=== PATIENT | male | born 1945 | race Caucasian/White ===

== ENCOUNTER 2023-02-10 21:48 | Inpatient (IN) | payer MEDICARE, OTHER ==
[~2023-02-10] VITALS: Ht 167.6 cm; Wt 63.5 kg
[~2023-02-10 21:48] MED LIST: IPRATROPIUM/ALBUTEROL SULFATE 3 ML AMPUL.NEB (DUONEB) ONE
[2023-02-10 21:49] VITALS: BP_SYST 127; PULSE 118; RESP 25; TEMP 97.8; O2SAT 83
[2023-02-10] MEDS ORDERED: cefTRIAXone 1 GM IVPB PREMIX 50 ML IV ONE (22:00)
[2023-02-10] MEDS ORDERED: MAGNESIUM SULFATE 50 ML IV ONE (22:00)
[2023-02-10] MEDS ORDERED: methylPREDNISolone SOD SUCC/PF 62.5 MG/ML VIAL IVP ONE (22:00)
[2023-02-10] MEDS ORDERED: IPRATROPIUM/ALBUTEROL SULFATE 3 ML AMPUL.NEB (DUONEB) INH ONE (22:00)
[2023-02-10] MEDS ORDERED: AZITHROMYCIN 500 MG in NS 250 ML IV ONE (22:00)
[2023-02-10] MEDS ORDERED: AZITHROMYCIN 500 MG/VIAL (ZITHROMAX) IV ONE (22:03)
[2023-02-10 22:13] LABS: BASOPHILS % (AUTO) 0.3 % (0.0-2.0)
[2023-02-10 22:17] LABS: BLOOD GAS PO2 57.3 mmHg (75.0-100.0)
[2023-02-10 22:18] LABS: ABG O2 SAT% ESTIMATE 89.8 % (94.0-100.0); BLOOD GAS HCO3 21.3 mmol/L (21.0-27.0)
[2023-02-10 22:22] LABS: ANION GAP 12 (5-15); CALCIUM 9.4 mg/dL (8.4-11.0); CARBON DIOXIDE 26 mmol/L (23-29); CHLORIDE 94 mmol/L (98-107); CREATININE 2.14 mg/dL (0.55-1.30); GLUCOSE 142 mg/dL (74-106); POTASSIUM 4.4 mmol/L (3.5-5.1); SODIUM SERUM 132 mmol/L (136-145); UREA NITROGEN, BLOOD 37 mg/dL (8-21)
[2023-02-10 22:27] LABS: ALANINE AMINOTRANSFERASE 10 U/L (12-78); ALBUMIN 3.1 g/dL (3.4-4.8); ASPARTATE AMINOTRANSFERASE 23 U/L (10-37); TOTAL PROTEIN, SERUM 7.5 g/dL (6.4-8.3)
[2023-02-10] MEDS ORDERED: FUROSEMIDE 40 MG/4 ML VIAL IVP ONE (22:30)
[2023-02-10] MEDS ORDERED: LACT10SO6 (22:46)
[2023-02-10] MEDS ORDERED: ACET1TAB93 PO (22:46)
[2023-02-10] MEDS ORDERED: MELO-89 PO (22:46)
[2023-02-10] MEDS ORDERED: LOSA100T24 PO (22:46)
[2023-02-10] MEDS ORDERED: SIMV5TAB59 PO (22:46)
[2023-02-10] MEDS ORDERED: FLUT1BLS12 (22:46)
[2023-02-10] MEDS ORDERED: MORP-92 PO (22:46)
[2023-02-10] MEDS ORDERED: TIOT4MIS2 INH (22:46)
[2023-02-10] MEDS ORDERED: PANT40TA45 PO (22:46)
[2023-02-10 23:06] LABS: EOSINOPHILS % (AUTO) 0.1 % (0.0-4.0); HEMATOCRIT 33.6 % (36-54); HEMOGLOBIN 11.4 g/dL (14.0-18.0); LYMPHOCYTES # (AUTO) 0.6 K/uL (1.0-5.5); LYMPHOCYTES % (AUTO) 4.7 % (20.5-51.5); MEAN CORPUSCULAR HEMOGLOBIN 35 pg (27-31); MEAN CORPUSCULAR HGB CONC 34 % (32-36); MEAN CORPUSCULAR VOLUME 102 fL (79.0-98.0); MONOCYTES # (AUTO) 0.8 K/uL (0.0-1.0); MONOCYTES % (AUTO) 6.3 % (1.7-9.3); NEUTROPHILS # (AUTO) 10.8 K/uL (1.8-7.7); NEUTROPHILS % (AUTO) 88.6 % (40.0-70.0); PLATELET COUNT (AUTO) 197 K/uL (130-430); WHITE BLOOD COUNT (AUTO) 12.2 K/uL (4.8-10.8)
[2023-02-11] VITALS (13 sets, daily range): BP systolic 100–116; PULSE 80–94; RESP 16–20; TEMP 96.9–98.2; O2SAT 89–97
[2023-02-11] MEDS: IPRATROPIUM/ALBUTEROL SULFATE 3 ML AMPUL.NEB (DUONEB) INH SCH ×5 (07:48→23:01)
[2023-02-11] MEDS: METHYLPREDNISOLONE SOD SUCC 40 MG/ML VIAL IVP SCH ×2 (10:03→22:02)
[2023-02-11] MEDS ORDERED: ONDANSETRON HCL 4 MG/2 ML VIAL IVP PRN (10:15)
[2023-02-11] MEDS ORDERED: HYDROcodone/ACETAMIN 5-325 MG TAB (NORCO/ VICODIN) PO PRN (10:15)
[2023-02-11] MEDS ORDERED: HYDROcodone/ACETAMIN 10-325 MG TAB PO PRN (10:15)
[2023-02-11] MEDS ORDERED: D5/0.45 NS 1,000 ML IV SCH (10:15)
[2023-02-11] MEDS ORDERED: LORazepam 2 MG/ML VIAL IVP PRN (10:15)
[2023-02-11] MEDS ORDERED: NALOXONE HCL 0.4 MG/ML AMP (NARCAN) IVP PRN ×2 (10:15)
[2023-02-11] MEDS ORDERED: ACETAMINOPHEN 325 MG TABLET PO PRN ×2 (10:15→11:00)
[2023-02-11 11:00] LABS: BASOPHILS % (AUTO) 0.2 % (0.0-2.0); HEMATOCRIT 25.6 % (36-54); LYMPHOCYTES # (AUTO) 0.4 K/uL (1.0-5.5); LYMPHOCYTES % (AUTO) 4.3 % (20.5-51.5); MEAN CORPUSCULAR HEMOGLOBIN 44 pg (27-31); MEAN CORPUSCULAR HGB CONC 43 % (32-36); MEAN CORPUSCULAR VOLUME 102 fL (79.0-98.0); MONOCYTES # (AUTO) 0.3 K/uL (0.0-1.0); MONOCYTES % (AUTO) 3.1 % (1.7-9.3); NEUTROPHILS % (AUTO) 92.4 % (40.0-70.0); RED CELL DISTRIBUTION WIDTH 17.7 % (9.0-15.0); WHITE BLOOD COUNT (AUTO) 8.6 K/uL (4.8-10.8)
[2023-02-11] MEDS ORDERED: MELOXICAM 7.5 MG TABLET PO ONE (11:00)
[2023-02-11] MEDS ORDERED: PANTOPRAZOLE SODIUM 40 MG TAB PO ONE (11:00)
[2023-02-11] MEDS ORDERED: LOSARTAN POTASSIUM 50 MG TABLET (COZAAR) PO ONE (11:00)
[2023-02-11 11:09] LABS: ANION GAP 12 (5-15); CALCIUM 9.5 mg/dL (8.4-11.0); CARBON DIOXIDE 23 mmol/L (23-29); CHLORIDE 91 mmol/L (98-107); CREATININE 2.01 mg/dL (0.55-1.30); GLUCOSE 165 mg/dL (74-106); POTASSIUM 4.2 mmol/L (3.5-5.1); SODIUM SERUM 126 mmol/L (136-145); UREA NITROGEN, BLOOD 48 mg/dL (8-21)
[2023-02-11 12:32] LABS: PLATELET COUNT (AUTO) 181 K/uL (130-430)
[2023-02-11] MEDS: AZITHROMYCIN 500 MG in NS 250 ML IV SCH (15:00)
[2023-02-11] MEDS: FUROSEMIDE 20 MG/2 ML VIAL IVP SCH (16:54)
[2023-02-11] MEDS ORDERED: SIMVASTATIN 10 MG TABLET PO SCH (21:00)
[2023-02-11] MEDS: MORPHINE SULFATE 15 MG TABLET.ER PO SCH (22:03)
[2023-02-12] VITALS (9 sets, daily range): BP systolic 114–138; PULSE 89–107; RESP 16–21; TEMP 96.7–98.3; O2SAT 92–97
[2023-02-12] MEDS: IPRATROPIUM/ALBUTEROL SULFATE 3 ML AMPUL.NEB (DUONEB) INH SCH ×3 (02:35→11:40)
[2023-02-12 05:31] LABS: HEMATOCRIT 29.3 % (36-54); LYMPHOCYTES # (AUTO) 0.3 K/uL (1.0-5.5); LYMPHOCYTES % (AUTO) 3.3 % (20.5-51.5); MEAN CORPUSCULAR HEMOGLOBIN 34 pg (27-31); MEAN CORPUSCULAR HGB CONC 34 % (32-36); MEAN CORPUSCULAR VOLUME 99 fL (79.0-98.0); MONOCYTES # (AUTO) 0.5 K/uL (0.0-1.0); MONOCYTES % (AUTO) 6.2 % (1.7-9.3); NEUTROPHILS # (AUTO) 7.9 K/uL (1.8-7.7); NEUTROPHILS % (AUTO) 90.5 % (40.0-70.0); PLATELET COUNT (AUTO) 187 K/uL (130-430); RED BLOOD CELL COUNT(AUTO) 2.97 MIL/uL (4.2-6.2); WHITE BLOOD COUNT (AUTO) 8.8 K/uL (4.8-10.8)
[2023-02-12 05:35] LABS: ANION GAP 13 (5-15); CALCIUM 9.1 mg/dL (8.4-11.0); CARBON DIOXIDE 24 mmol/L (23-29); CHLORIDE 95 mmol/L (98-107); CREATININE 2.02 mg/dL (0.55-1.30); GLUCOSE 163 mg/dL (74-106); PHOSPHORUS 4.9 mg/dL (2.7-4.5); POTASSIUM 4.1 mmol/L (3.5-5.1); SODIUM SERUM 132 mmol/L (136-145); UREA NITROGEN, BLOOD 58 mg/dL (8-21)
[2023-02-12] MEDS: FUROSEMIDE 20 MG/2 ML VIAL IVP SCH (06:55)
[2023-02-12] MEDS ORDERED: PANTOPRAZOLE SODIUM 40 MG TAB PO SCH (09:00)
[2023-02-12] MEDS ORDERED: LOSARTAN POTASSIUM 50 MG TABLET (COZAAR) PO SCH (09:00)
[2023-02-12] MEDS ORDERED: MELOXICAM 7.5 MG TABLET PO SCH (09:00)
[2023-02-12] MEDS: METHYLPREDNISOLONE SOD SUCC 40 MG/ML VIAL IVP SCH (09:44)
[2023-02-12] MEDS: MORPHINE SULFATE 15 MG TABLET.ER PO SCH (09:46)
[2023-02-12] MEDS: AZITHROMYCIN 500 MG in NS 250 ML IV SCH (12:16)
== END 2023-02-12 13:35 | disposition short-term general hospital (02) | DRG 871 ==
LOC: SED 21:48 → STU 02-11 05:28
PROVIDERS: ADMIT Preventive Medicine Preventive Medicine/Occupational Environmental Medicine; ATTEND Preventive Medicine Preventive Medicine/Occupational Environmental Medicine
PROC: 5A09357 Assistance with Respiratory Ventilation, Less than 24 Consecutive Hours, Continuous Positive Airway Pressure (ICD-10-PCS; principal; 2023-02-11)
DX: A41.9 Sepsis, unspecified organism (principal); J18.9 Pneumonia, unspecified organism; J96.21 Acute and chronic respiratory failure with hypoxia; E87.1 Hypo-osmolality and hyponatremia; I13.0 Hypertensive heart and chronic kidney disease with heart failure and stage 1 through stage 4 chronic kidney disease, or unspecified chronic kidney disease; N17.9 Acute kidney failure, unspecified; I50.32 Chronic diastolic (congestive) heart failure; B18.2 Chronic viral hepatitis C; D64.9 Anemia, unspecified; E78.5 Hyperlipidemia, unspecified; E83.39 Other disorders of phosphorus metabolism; G47.33 Obstructive sleep apnea (adult) (pediatric); I25.10 Atherosclerotic heart disease of native coronary artery without angina pectoris; I70.0 Atherosclerosis of aorta; J43.9 Emphysema, unspecified; J84.10 Pulmonary fibrosis, unspecified; M47.817 Spondylosis without myelopathy or radiculopathy, lumbosacral region; N18.2 Chronic kidney disease, stage 2 (mild); R73.03 Prediabetes; K21.9 Gastro-esophageal reflux disease without esophagitis; Z20.822 Contact with and (suspected) exposure to COVID-19; I27.20 Pulmonary hypertension, unspecified; K57.90 Diverticulosis of intestine, part unspecified, without perforation or abscess without bleeding; Z87.19 Personal history of other diseases of the digestive system; Z79.899 Other long term (current) drug therapy
CPT/HCPCS: 36415; 36600; 71045; 80048; 80053; 82803; 83605; 83735; 83880; 84100; 84443; 85025; 87040; 93005; 93306; 94640; 94660; 94760; 99285; G0378; J0456; J0696; J1030; J1940; J2930; J3475; J7050